=== PATIENT | male | born 1935 | race Caucasian/White ===

== ENCOUNTER 2016-11-13 06:57 | Emergency (ER) | payer OTHER ==
[~2016-11-13] VITALS: Ht 172.7 cm; Wt 68.9 kg
[~2016-11-13 06:57] MED LIST: ASPEC81 PO; ATOR-22 PO
[2016-11-13 07:00] VITALS: TEMP 36.6; Ht 172.7 cm; Wt 68.9 kg
[2016-11-13] MEDS ORDERED: SODIUM CHLORIDE 0.9% 1000ML 1,000 ML IV STA (07:18)
--- NOTE | 2016-11-13 07:20 | EMERGENCY ROOM VISIT NOTE ---
History Report prepared by Mike: Speedy Monroe Under the Supervision of: Dr. Cortes Haro M.D. First contact with patient: 07:08 Chief Complaint: IRREGULAR HEARTBEAT Stated Complaint: IRREGULAR HEARTRATE Nursing Triage Summary: pt reports X 2 days of feeling tired with periods of feeling light headed. per family pt has "been laying around for 2 days, and this is not normal for him". pt reports no cp , sob, [place] History of Present Illness The patient is a 81 year old male who presents to the Emergency Room with complaints of an irregular heartbeat that occurred yesterday. He states that recently he has not been quite feeling himself. He has been generally weak and intermittently lightheaded. Yesterday, his son thought that he seemed strange and noticed that he was having an irregular heart beat. The patient did not feel any palpitations at this time. He denies any headache, fever, chest pain, shortness of breath, nausea, vomiting, headache, abdominal pain, rash, abnormal urinary symptoms, or abnormal bowel symptoms. He has a past medical history of a cholecystectomy, without any other abdominal surgeries. He is taking Lipitor and Aspirin 81 mg. He denies any past cardiac or stroke history. Source of History: patient Onset: yesterday Position: other (Cardiac) Symptom Intensity: mild Quality: other (Irregular Heartbeat) Timing: resolved Associated Symptoms: + weakness, No fevers, No headache, No chest pain, No SOB, No nausea, No abdominal pain, No melena, No hematochezia, No diarrhea, No urinary symptoms Note: He is intermittently lightheaded. Review of Systems See HPI for pertinent positives & negatives. A total of 10 systems reviewed and were otherwise negative. Past Medical & Surgical Medical Problems: (1) History of abdominal hernia Family History Cancer Social History Smoking Status: Never Smoker Smokeless Tobacco Use: No Drug Use: none Marital Status: Occupation Status: retired Current/Historical Medications Scheduled Aspirin Enteric Coated (Ecotrin Or Generic), 81 MG PO DAILY Atorvastatin (Lipitor), 20 MG PO DAILY Allergies Coded Allergies: No Known Allergies (Verified , 11/13/16) Physical Exam Vital Signs Date Time Temp Pulse Resp B/P (MAP) Pulse Ox O2 Delivery O2 Flow Rate FiO2 11/13/16 12:09 62 20 140/80 98 Room Air 11/13/16 11:33 60 11/13/16 11:29 59 10 137/75 96 Room Air 11/13/16 10:24 58 16 157/76 11/13/16 09:57 54 16 153/71 96 Room Air 11/13/16 09:17 58 16 139/67 94 Room Air 11/13/16 08:57 14 140/70 96 11/13/16 08:55 Room Air 11/13/16 08:14 59 143/67 Room Air 11/13/16 07:22 57 11/13/16 07:20 57 145/75 82 146/86 103 152/81 11/13/16 07:19 58 16 145/75 93 Room Air 11/13/16 07:00 36.6 78 20 156/89 96 Room Air Physical Exam GENERAL: Patient is well appearing and in no acute distress. HEENT: No acute trauma, normocephalic atraumatic, mucous membranes dry, no nasal congestion, no scleral icterus. NECK: No stridor, no adenopathy, no meningismus, trachea is midline. LUNGS: No dyspnea. Clear to auscultation and equal bilaterally. No wheeze, no rhonchi. HEART: Regular rate and rhythm. No murmurs, rubs, gallops appreciated. ABDOMEN: Soft, nontender, bowel sounds positive, no masses appreciated, no peritonitis. BACK: No midline tenderness, no CVA tenderness EXTREMITIES: Normal motion all extremities, no cyanosis, no edema. NEUROLOGIC: Alert and oriented, no acute motor or sensory deficits, no focal weakness, cranial nerves grossly intact. SKIN: No rash, no jaundice, no diaphoresis. Medical Decision & Procedures ER Provider Diagnostic Interpretation: Radiology results and stated below per my review and radiologist interpretation: HEAD WITHOUT CONTRAST (CT) CLINICAL HISTORY: 81 years-old Male with Generalized Weakness. Acute lightheadedness and weakness x2 days. TECHNIQUE: Multiple axial CT images of the head were obtained without contrast. A dose lowering technique was utilized adhering to the principles of ALARA. CT DOSE: 537.48 mGy.cm COMPARISON: None. FINDINGS: No acute intracranial hemorrhage, midline shift, mass, large territorial ischemia or abnormal extra-axial collection. Moderate atrophy is noted. Ill-defined areas of low attenuation within the subcortical, deep and periventricular white matter of the cerebral branches bilaterally suggests chronic microvascular ischemic changes. Focal area of low attenuation involving the inferior left lentiform nucleus, 8 mm is noted. The calvarium is intact. The paranasal sinuses, mastoid air cells, and middle ear cavities are clear. IMPRESSION: 1. No acute intracranial hemorrhage or territorial ischemia. 2. Focal area of low attenuation involving the inferior left lentiform nucleus suggests age-indeterminate lacunar infarction without comparison. 3. Atrophy with background chronic microvascular ischemic changes. The above report was generated using voice recognition software. It may contain grammatical, syntax or spelling errors. Electronically signed by: Darnell Marquez M.D. 11/13/2016 7:50 AM Dictated Date/Time: 11/13/2016 7:43 AM CHEST ONE VIEW PORTABLE HISTORY: 81 years-old Male Generalized Weakness acute lightheadedness and generalized weakness for 2 days. Initial exam. COMPARISON: Chest radiograph 09/11/2007 TECHNIQUE: Portable upright AP view of the chest FINDINGS: Cardiac silhouette is within normal limits. Again noted is asymmetric mild prominence of the right hilum which is unchanged. No pleural effusion, focal airspace consolidation or overt pulmonary edema. There is a curvilinear line projecting over the left lung apex suggesting skinfold. The bones are grossly intact. IMPRESSION: 1. No focal airspace consolidation. 2. Curvilinear line projecting over the left lung apex suggests skinfold. Further evaluation with inspiration and expiration films may be considered to exclude small pneumothorax. The above report was generated using voice recognition software. It may contain grammatical, syntax or spelling errors. Electronically signed by: Darnell Marquez M.D. 11/13/2016 8:01 AM Dictated Date/Time: 11/13/2016 7:58 AM LEFT HAND MIN 3 VIEWS ROUTINE HISTORY: 81 years-old Male possible metal left hand from injury 60+ yrs ago, for MRI MRI screening study to assess for possible metallic foreign body. COMPARISON: None available TECHNIQUE: 3 views of the left hand FINDINGS: There is a 3 mm metallic density object within the soft tissues adjacent to the lateral aspect of the first proximal phalanx which is encased by calcification, 6 x 5 mm. Multifocal severe degenerative changes are noted about the wrist and hand. Severe degenerative changes involve the first carpometacarpal joint and the DIP joints, notably within the third and fourth digits. Subcortical cystic changes are seen within the scaphoid. There is chronic appearing corticated densities adjacent to the radial styloid and scaphoid which may reflect remote fracture. Vascular calcifications are noted. The bones are moderately demineralized. No acute fracture or dislocation identified. IMPRESSION: 1. 3 mm metallic density foreign object is present within the soft tissues adjacent to the lateral aspect of the first proximal phalanx surrounded by 6 x 5 mm focus of calcification. 2. Severe multifocal degenerative changes of the hand and wrist. 3. No acute bony abnormality. 4. Peripheral vascular disease. The above report was generated using voice recognition software. It may contain grammatical, syntax or spelling errors. Electronically signed by: Darnell Marquez M.D. 11/13/2016 9:20 AM Dictated Date/Time: 11/13/2016 9:15 AM BRAIN WITHOUT CONTRAST HISTORY: 81 years-old Male weakness yesterday resolved, abnormal CT head acute generalized weakness with lightheadedness. Follow-up study. COMPARISON: CT head of same day TECHNIQUE: Multiplanar multisequence MRI of the brain was obtained without contrast. FINDINGS: There is no restricted diffusion to suggest acute ischemia. Moderate atrophy is noted. Multifocal subcortical, deep white matter and periventricular white matter T2 prolongation is compatible with chronic microvascular ischemic changes. Scattered more focal areas of T2 prolongation within the basal ganglia suggest remote lacunar infarctions. No acute intracranial hemorrhage, midline shift or abnormal extra-axial collections. No hydrocephalus. Midline structures including the corpus callosum, brainstem, optic chiasm, pituitary and pineal glands are unremarkable. No cerebellar tonsillar herniation. Uncovertebral spurring and facet arthropathy involves the imaged upper cervical spine. Major flow voids at the skull base appear patent. Orbits are symmetric. Mastoid air cells and imaged paranasal sinuses are generally clear. IMPRESSION: 1. No acute intracranial abnormality. Negative for acute ischemia or intracranial hemorrhage. 2. Atrophy with chronic microvascular ischemic changes and remote lacunar infarctions of the basal ganglia. The above report was generated using voice recognition software. It may contain grammatical, syntax or spelling errors. Electronically signed by: Darnell Marquez M.D. 11/13/2016 11:32 AM Dictated Date/Time: 11/13/2016 11:27 AM ORBITS FOR MRI HISTORY: 81 years-old Male POSSIBLE METAL IN EYES; WEAKNESS; ABNORMAL CT HEAD acute weakness and lightheadedness for 2 days. Concern for possible metallic foreign bodies of the orbits. COMPARISON: CT head of same day TECHNIQUE: 3 views of the orbits. FINDINGS: No radiopaque foreign body identified. Multilevel facet arthropathy and intervertebral disc space narrowing is seen within the cervical spine. Paranasal sinuses appear generally clear. No acute facial or calvarial fracture seen. IMPRESSION: No metallic foreign bodies identified. The above report was generated using voice recognition software. It may contain grammatical, syntax or spelling errors. Electronically signed by: Darnell Marquez M.D. 11/13/2016 11:01 AM Dictated Date/Time: 11/13/2016 10:59 AM Laboratory Results 11/13/16 07:25 Red Blood Count 5.00, Mean Corpuscular Volume 97.6, Mean Corpuscular Hemoglobin 31.6, Mean Corpuscular Hemoglobin Concent 32.4, Mean Platelet Volume 9.9, Neutrophils (%) (Auto) 64.5, Lymphocytes (%) (Auto) 19.9, Monocytes (%) (Auto) 14.1, Eosinophils (%) (Auto) 1.1, Basophils (%) (Auto) 0.2, Neutrophils # (Auto ) 3.48, Lymphocytes # (Auto) 1.07, Monocytes # (Auto) 0.76, Eosinophils # (Auto ) 0.06, Basophils # (Auto) 0.01 11/13/16 07:25 Test 11/13/16 07:25 11/13/16 08:16 White Blood Count 5.39 K/uL (4.8-10.8) Red Blood Count 5.00 M/uL (4.7-6.1) Hemoglobin 15.8 g/dL (14.0-18.0) Hematocrit 48.8 % (42-52) Mean Corpuscular Volume 97.6 fL (80-100) Mean Corpuscular Hemoglobin 31.6 pg (25-34) Mean Corpuscular Hemoglobin Concent 32.4 g/dl (32-36) Platelet Count 161 K/uL (130-400) Mean Platelet Volume 9.9 fL (7.4-10.4) Neutrophils (%) (Auto) 64.5 % Lymphocytes (%) (Auto) 19.9 % Monocytes (%) (Auto) 14.1 % Eosinophils (%) (Auto) 1.1 % Basophils (%) (Auto) 0.2 % Neutrophils # (Auto) 3.48 K/uL (1.4-6.5) Lymphocytes # (Auto) 1.07 K/uL (1.2-3.4) Monocytes # (Auto) 0.76 K/uL (0.11-0.59) Eosinophils # (Auto) 0.06 K/uL (0-0.5) Basophils # (Auto) 0.01 K/uL (0-0.2) RDW Standard Deviation 46.3 fL (36.4-46.3) RDW Coefficient of Variation 13.0 % (11.5-14.5) Immature Granulocyte % (Auto) 0.2 % Immature Granulocyte # (Auto) 0.01 K/uL (0.00-0.02) Anion Gap 7.0 mmol/L (3-11) Est Creatinine Clear Calc Drug Dose 57.0 ml/min Estimated GFR () 82.0 Estimated GFR (Non- 70.8 BUN/Creatinine Ratio 16.0 (10-20) Calcium Level 9.0 mg/dl (8.5-10.1) Magnesium Level 2.0 mg/dl (1.8-2.4) Troponin I < 0.015 ng/ml (0-0.045) Thyroid Stimulating Hormone (TSH) 2.510 uIu/ml (0.300-4.500) Lyme Disease IgG Antibody NEG (NEG) Lyme Disease IgM Antibody NEG (NEG) Urine Color DK YELLOW Urine Appearance CLEAR (CLEAR) Urine pH 6.0 (4.5-7.5) Urine Specific [place] 1.022 (1.000-1.030) Urine Protein 1+ (NEG) Urine Glucose (UA) NEG (NEG) Urine Ketones 1+ (NEG) Urine Occult Blood 2+ (NEG) Urine Nitrite NEG (NEG) Urine Bilirubin NEG (NEG) Urine Urobilinogen NEG (NEG) Urine Leukocyte Esterase TRACE (NEG) Urine WBC (Auto) 5-10 /hpf (0-5) Urine RBC (Auto) 10-30 /hpf (0-4) Urine Hyaline Casts (Auto) 1-5 /lpf (0-5) Urine Epithelial Cells (Auto) 20-30 /lpf (0-5) Urine Bacteria (Auto) NEG (NEG) Laboratory results as reviewed by me. Medications Administered Medications (Trade) Dose Ordered Sig/Afsaneh Route Start Time Stop Time Status Last Admin Dose Admin Sodium Chloride 1,000 ml @ 999 mls/hr Q1H1M STAT IV 11/13/16 07:18 11/13/16 08:18 DC 11/13/16 07:24 999 MLS/HR Lorazepam (Ativan Inj) 1 mg NOW STAT IV 11/13/16 10:13 11/13/16 10:14 DC 11/13/16 10:21 1 MG ECG Indication: other (Irregular Heartbeat) Rate (beats per minute): 60 Rhythm: normal sinus Findings: no acute ischemic change, no ectopy ED Course 0708: The patient was evaluated in room A10. A complete history and physical exam was performed. 0839: The patient states that he may have metal in his left hand. 0954: We discussed the option for a MRI of his brain, and he is agreeable. However, the patient notes claustrophobia. He would like to try to get the scan without sedation. 1013: He decided that he wants something before getting the MRI. 1200: Reevaluated the patient. Discussed results and discharge instructions: He verbalized understanding and agreement. The patient is ready for discharge. His son will drive him. Medical Decision Differential: Sepsis, Infectious (UTI/Pneumonia/Meningitis/etc), Metabolic/ Electrolyte Abnormality, Cardiac, Hepatic, Endocrine, Toxicologic, Neurologic, amongst other pathologies entertained. 81 yr old male arrives with complaint of heart palpitations, generalized weakness and per son had irregular heart rate yesterday. Questionable bilateral hand weakness at some point yesterday. Exam benign and patient in no distress. Given fluids. CT head with questionable infarcts and without history of this felt that MRI indicated given questionable symptoms yesterday, especially given age. Fortunately MRI without acute findings but does have some old lacunar findings which do not require admission but should be discussed with PCP. Already on ASA 81mg daily. Monitor with some PACs but no runs nor afib. Labs look good, no renal failure, no trop elevation and stable. Lyme is negative. Comfortable with going home. Agrees to follow up with his PCP in near future. Son agrees with this plan as well. Medication Reconcilliation Current Medication List: was personally reviewed by me Blood Pressure Screening Patient's blood pressure: Elevated blood pressure (mildly) Blood pressure disposition: Referred to PCP Impression Primary Impression: Intermittent palpitations Additional Impressions: Generalized weakness lacunar infarct, remote Scribe Attestation The scribe's documentation has been prepared under my direction and personally reviewed by me in its entirety. I confirm that the note above accurately reflects all work, treatment, procedures, and medical decision making performed by me. Departure Information Dispostion Home / Self-Care Referrals Андрей Krishnan M.D. 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 Problem Qualifiers
[2016-11-13 07:46] LABS: BASO % 0.2 %; BASO ABS # 0.01 K/uL (0-0.2); COMPLETE YES; EOS % 1.1 %; HEMATOCRIT 48.8 % (42-52); IG% 0.2 %; LYMPH % 19.9 %; LYMPH ABS # 1.07 K/uL (1.2-3.4); MEAN CELL VOLUME 97.6 fL (80-100); MEAN CORPUSCULAR HEMOGLOBIN 31.6 pg (25-34); MEAN CORPUSCULAR HGB CONC 32.4 g/dl (32-36); MEAN PLATELET VOLUME 9.9 fL (7.4-10.4); MONO % 14.1 %; NEUT % 64.5 %; PLATELET COUNT 161 K/uL (130-400); WHITE BLOOD COUNT 5.39 K/uL (4.8-10.8)
--- NOTE | 2016-11-13 07:51 | DIAGNOSTIC IMAGING REPORT ---
HEAD WITHOUT CONTRAST (CT) CLINICAL HISTORY: 81 years-old Male with Generalized Weakness. Acute lightheadedness and weakness x2 days. TECHNIQUE: Multiple axial CT images of the head were obtained without contrast. A dose lowering technique was utilized adhering to the principles of ALARA. CT DOSE: 537.48 mGy.cm COMPARISON: None. FINDINGS: No acute intracranial hemorrhage, midline shift, mass, large territorial ischemia or abnormal extra-axial collection. Moderate atrophy is noted. Ill-defined areas of low attenuation within the subcortical, deep and periventricular white matter of the cerebral branches bilaterally suggests chronic microvascular ischemic changes. Focal area of low attenuation involving the inferior left lentiform nucleus, 8 mm is noted. The calvarium is intact. The paranasal sinuses, mastoid air cells, and middle ear cavities are clear. IMPRESSION: 1. No acute intracranial hemorrhage or territorial ischemia. 2. Focal area of low attenuation involving the inferior left lentiform nucleus suggests age-indeterminate lacunar infarction without comparison. 3. Atrophy with background chronic microvascular ischemic changes. The above report was generated using voice recognition software. It may contain grammatical, syntax or spelling errors. Electronically signed by: Darnell Marquez M.D. 11/13/2016 7:50 AM Dictated Date/Time: 11/13/2016 7:43 AM
[2016-11-13 08:01] LABS: BLOOD UREA NITROGEN 16 mg/dl (7-18); CARBON DIOXIDE 28 mmol/L (21-32); CHLORIDE 103 mmol/L (98-107); GLUCOSE 100 mg/dl (70-99); POTASSIUM 3.9 mmol/L (3.5-5.1); SODIUM 138 mmol/L (136-145)
--- NOTE | 2016-11-13 08:03 | DIAGNOSTIC IMAGING REPORT ---
CHEST ONE VIEW PORTABLE HISTORY: 81 years-old Male Generalized Weakness acute lightheadedness and generalized weakness for 2 days. Initial exam. COMPARISON: Chest radiograph 09/11/2007 TECHNIQUE: Portable upright AP view of the chest FINDINGS: Cardiac silhouette is within normal limits. Again noted is asymmetric mild prominence of the right hilum which is unchanged. No pleural effusion, focal airspace consolidation or overt pulmonary edema. There is a curvilinear line projecting over the left lung apex suggesting skinfold. The bones are grossly intact. IMPRESSION: 1. No focal airspace consolidation. 2. Curvilinear line projecting over the left lung apex suggests skinfold. Further evaluation with inspiration and expiration films may be considered to exclude small pneumothorax. The above report was generated using voice recognition software. It may contain grammatical, syntax or spelling errors. Electronically signed by: Darnell Marquez M.D. 11/13/2016 8:01 AM Dictated Date/Time: 11/13/2016 7:58 AM
[2016-11-13] MEDS ORDERED: ASPI81TA21 PO (08:15)
[2016-11-13 08:33] LABS: URINE APPEARANCE CLEAR (CLEAR); URINE BILIRUBIN NEG (NEG); URINE COLOR DK YELLOW; URINE EPITHELIAL CELL AUTO 20-30 /lpf (0-5); URINE NITRITE NEG (NEG); URINE SPECIFIC GRAVITY 1.022 (1.000-1.030); UROBILINOGEN NEG (NEG); ZZUR CULT IF INDIC CLEAN CATCH NO
[2016-11-13 08:36] LABS: MANUAL MICROSCOPIC REQUIRED? NO; REVIEW REQ? NO
[2016-11-13 09:17] LABS: LYME DISEASE AB IGG NEG (NEG); LYME DISEASE AB IGM NEG (NEG)
--- NOTE | 2016-11-13 09:22 | DIAGNOSTIC IMAGING REPORT ---
LEFT HAND MIN 3 VIEWS ROUTINE HISTORY: 81 years-old Male possible metal left hand from injury 60+ yrs ago, for MRI MRI screening study to assess for possible metallic foreign body. COMPARISON: None available TECHNIQUE: 3 views of the left hand FINDINGS: There is a 3 mm metallic density object within the soft tissues adjacent to the lateral aspect of the first proximal phalanx which is encased by calcification, 6 x 5 mm. Multifocal severe degenerative changes are noted about the wrist and hand. Severe degenerative changes involve the first carpometacarpal joint and the DIP joints, notably within the third and fourth digits. Subcortical cystic changes are seen within the scaphoid. There is chronic appearing corticated densities adjacent to the radial styloid and scaphoid which may reflect remote fracture. Vascular calcifications are noted. The bones are moderately demineralized. No acute fracture or dislocation identified. IMPRESSION: 1. 3 mm metallic density foreign object is present within the soft tissues adjacent to the lateral aspect of the first proximal phalanx surrounded by 6 x 5 mm focus of calcification. 2. Severe multifocal degenerative changes of the hand and wrist. 3. No acute bony abnormality. 4. Peripheral vascular disease. The above report was generated using voice recognition software. It may contain grammatical, syntax or spelling errors. Electronically signed by: Darnell Marquez M.D. 11/13/2016 9:20 AM Dictated Date/Time: 11/13/2016 9:15 AM
[2016-11-13] MEDS ORDERED: LORAZEPAM 2 MG/ML 1 ML VIAL IV STA (10:13)
--- NOTE | 2016-11-13 11:02 | DIAGNOSTIC IMAGING REPORT ---
ORBITS FOR MRI HISTORY: 81 years-old Male POSSIBLE METAL IN EYES; WEAKNESS; ABNORMAL CT HEAD acute weakness and lightheadedness for 2 days. Concern for possible metallic foreign bodies of the orbits. COMPARISON: CT head of same day TECHNIQUE: 3 views of the orbits. FINDINGS: No radiopaque foreign body identified. Multilevel facet arthropathy and intervertebral disc space narrowing is seen within the cervical spine. Paranasal sinuses appear generally clear. No acute facial or calvarial fracture seen. IMPRESSION: No metallic foreign bodies identified. The above report was generated using voice recognition software. It may contain grammatical, syntax or spelling errors. Electronically signed by: Darnell Marquez M.D. 11/13/2016 11:01 AM Dictated Date/Time: 11/13/2016 10:59 AM
--- NOTE | 2016-11-13 11:33 | DIAGNOSTIC IMAGING REPORT ---
BRAIN WITHOUT CONTRAST HISTORY: 81 years-old Male weakness yesterday resolved, abnormal CT head acute generalized weakness with lightheadedness. Follow-up study. COMPARISON: CT head of same day TECHNIQUE: Multiplanar multisequence MRI of the brain was obtained without contrast. FINDINGS: There is no restricted diffusion to suggest acute ischemia. Moderate atrophy is noted. Multifocal subcortical, deep white matter and periventricular white matter T2 prolongation is compatible with chronic microvascular ischemic changes. Scattered more focal areas of T2 prolongation within the basal ganglia suggest remote lacunar infarctions. No acute intracranial hemorrhage, midline shift or abnormal extra-axial collections. No hydrocephalus. Midline structures including the corpus callosum, brainstem, optic chiasm, pituitary and pineal glands are unremarkable. No cerebellar tonsillar herniation. Uncovertebral spurring and facet arthropathy involves the imaged upper cervical spine. Major flow voids at the skull base appear patent. Orbits are symmetric. Mastoid air cells and imaged paranasal sinuses are generally clear. IMPRESSION: 1. No acute intracranial abnormality. Negative for acute ischemia or intracranial hemorrhage. 2. Atrophy with chronic microvascular ischemic changes and remote lacunar infarctions of the basal ganglia. The above report was generated using voice recognition software. It may contain grammatical, syntax or spelling errors. Electronically signed by: Darnell Marquez M.D. 11/13/2016 11:32 AM Dictated Date/Time: 11/13/2016 11:27 AM
[2016-11-13 12:09] VITALS: BP 140/80; PULSE 62; O2SAT 98
== END 2016-11-13 12:09 | disposition home or self-care (01) ==
LOC: C.EDB 06:58 → C.EDA 12:09
DX: R00.2 Palpitations (principal); R53.1 Weakness; Z86.73 Personal history of transient ischemic attack (TIA), and cerebral infarction without residual deficits; Z90.49 Acquired absence of other specified parts of digestive tract; Z98.890 Other specified postprocedural states; Z79.82 Long term (current) use of aspirin; R42 Dizziness and giddiness